=== PATIENT | female | born 1995 | race Caucasian/White ===

== ENCOUNTER 2024-11-13 05:10 | Emergency (ER) | payer OTHER ==
[~2024-11-13] VITALS: Ht 162.6 cm; Wt 55.4 kg
[2024-11-13] MEDS ORDERED: SPIR100T3 PO (10:42)
[2024-11-13] MEDS ORDERED: PROG1CAP8 PO (10:42)
[2024-11-13] MEDS ORDERED: IBUP200C25 PO (10:42)
[2024-11-13] MEDS ORDERED: ESTR1TAB PO (10:42)
[2024-11-13] MEDS ORDERED: ACET-683 PO (10:42)
[2024-11-13 11:30] LABS: BASO # 0.1 10^3/uL (0.0-0.2); BASO % 0.4 % (0.0-1.0); EOS # 0.0 10^3/uL (0.0-0.5); EOS % 0.1 % (0.0-3.0); LYMPH # 2.7 10^3/uL (1.5-5.0); LYMPH % 16.3 % (24.0-44.0); MONO # 0.6 10^3/uL (0.0-0.8); MONO % 3.8 % (2.0-8.0); NEUTROPHILS # 13.3 10^3/uL (1.5-8.5); NEUTROPHILS % 79.0 % (36.0-66.0); PLATELET COUNT, AUTOMATED 371 10^3/uL (150-450)
[2024-11-13] MEDS: MORPHINE 2 MG/ML 1 ML VIAL IV ONE (11:33)
[2024-11-13 11:36] LABS: ERYTHROCYTE SEDIMENTATION RATE 9 mm/hr (0-20)
[2024-11-13] MEDS ORDERED: ISOVUE-370 76% 100 ML VIAL As Ordered ONE (11:54)
[2024-11-13 12:03] LABS: C REACTIVE PROTEIN QUANTITATIV < 0.50 MG/DL (<1.0)
[2024-11-13 12:04] LABS: ALT/SGPT 32 U/L (7.0-40); AST/SGOT 24 U/L (<34); CALCIUM LEVEL 9.7 MG/DL (8.5-10.1); CARBON DIOXIDE LEVEL 27 MMOL/L (20-31); CHLORIDE LEVEL 103 MMOL/L (98-107); CREATININE FOR GFR 0.49 MG/DL (0.55-1.30); GLOMERULAR FILTRATION RATE > 90.0 (>60); MAGNESIUM LEVEL 2.0 MG/DL (1.8-2.4); POTASSIUM SERUM 4.1 MMOL/L (3.5-5.1); SODIUM LEVEL 141 MMOL/L (136-145)
[2024-11-13] MEDS: AMPICILLIN SOD/SULBACTAM SOD 3 GM in DEXTROSE 5% (D5W) MINI-BAG PLU 100 ML IV ONE (12:24)
[2024-11-13 12:47] VITALS: BP 126/75; TEMP 99.3; O2SAT 98
[2024-11-13] MEDS ORDERED: ESTR2TAB3 PO (13:04)
[2024-11-13] MEDS ORDERED: HOME MED LIST COMPLETE! XX SCH (13:05)
[2024-11-13] MEDS ORDERED: NAPR-885 PO (13:39)
[2024-11-13] MEDS ORDERED: PERI0.126 PO (13:39)
[2024-11-13] MEDS ORDERED: AMOX875T2 PO (13:39)
== END 2024-11-13 13:56 | disposition home or self-care (01) ==
LOC: M ED 05:10
DX: K04.7 Periapical abscess without sinus (principal); K05.6 Periodontal disease, unspecified; F12.10 Cannabis abuse, uncomplicated; F10.10 Alcohol abuse, uncomplicated; Z79.1 Long term (current) use of non-steroidal anti-inflammatories (NSAID); Z79.2 Long term (current) use of antibiotics; Z79.899 Other long term (current) drug therapy
CPT/HCPCS: 70491; 80047; 80053; 83735; 85025; 85652; 86140; 87040; 96365; 96366; 96375; 99284; J0295; Q9967